=== PATIENT | female | born 1995 | race African-American/Black ===

== ENCOUNTER 2025-01-10 09:43 | Observation (INO) | payer MEDICAID, SELFPAY ==
--- NOTE | 2025-01-10 10:00 | PC.NURSE ---
Patient arrives via ambulance holding young daughter. Patient states she had cramping last PM rates at 4-5 and cramping has increased today. States cramping increasded to 8-9 spo she went to urgent care. States she also had a white discharge which thick. No leaking of fluid. No bleeeding and has good movment. Pt asks if cramping could be related to walking alot of steps. Pt recently moved to [facility]. Last visit was at [facility] in August. Did have lab drawn. Pt has #18 Jel[employer] in right AC. Appears comfortable. States cramping is 5-6 currently.
--- OUTSIDE RECORDS SUMMARY | 2025-01-10 10:02 | XMS_ITS | Encounter Summary ---
Author Organization [facility] Address [address] [place] [address] Care Team Providers Care Project Controller Name Role Phone Unavailable Primary Care Provider Unavailabl e Reason for Visit * Reason Onset Date Comments MEDICATION REFILL 12/30/2022 Encounter Details Date Type Department Care Team (Late st Contact Info) Description 12/30/2022 Refill [facility]/ EVALUATION UNIT [address] [place] [address] Rebekah Willson MD [address] [place] [address] MEDICATION REFILL Social History Tobacco Use Types Packs/Day Years Used Date Smoking Tobacco: Every Day Cigarettes 0.3 1 Started: 06/18/2019; Last attempted to quit: 06/18/2020 Smokeless Tobacco: Never Alcohol Use Standard Drinks/Week Comments Not Currently 0 (1 standard drink = 0.6 oz pur e alcohol) AUDIT-C Answer Date Recorded Q1: How often do you have a drink containing alc ohol? Never 06/11/2020 Average Number of Drinks Not on file 020 Frequency of Binge Drinking Not on file 05/14 Overall Financial Resource Strain (CARDIA) Answe r Date Recorded How hard is it for you to pa y for the very basics like food, housing, medical care, and heating? Not hard at all 10/04/2022 [facility] [place] [facility] - Occupational Stress Questionnaire Answer Date Recorded Do you feel stress - tense, restless, nervous, or anxious, or unable to sleep at night because your mind is troubled all the time - these days? Not at all 10/04/2022 Hunger Vital Sign Answer Date Recorded Within the past 12 months, y ou worried that your food would run out before you got the money to buy more. Never true 10/05/19 23 Within the past 12 months, t he food you bought just didn't last and you didn't have money to get more. Never true 10/04/2022 PRAPARE - Transportation Answer Date Re corded In the past 12 months, has l ack of transportation kept you from medical appointments or from getting medications? No 09/11 In the past 12 months, has l ack of transportation kept you from meetings, work, or from getting things needed for daily living? No 10/04/2022 Housing Stability Vital Sign Answer Henrik e Recorded In the last 12 months, was t here a time when you were not able to pay the mortgage or rent on time? No 10/04/2022 In the last 12 months, how many places have you lived? 1 10/04/2022 In the last 12 months, was t here a time when you did not have a steady place to sleep or slept in a mcc (including now)? No 10/04/2022 [place] Depression Scale Answer Date Recorded [place] Depression Scale Total 12 10/10/2022 The thought of harming myself has occurred to me . Never 10/10/2022 Comments No Sex and Gender Information Value Date Recorded Sex Assigned at Female 09/21/2022 8:29 PM CDT Legal Sex Female 5:41 AM [employer] Gender Identity Female 09/21/2022 8:29 PM CDT Sexual Orientation Not on file documented as of this encounter Functional Status * Is person deaf or have serious hearing difficulty? Answer Date of Assessment Author No 10/04/2022 5:56 AM CDT Sulma Carrillo RN * Is person blind or have serious difficulty seeing? Answer Date of Assessment Author No 10/04/2022 5:56 AM CDT Sulma Carrillo RN * Does person have serious difficulty walking/climbing stairs? Answer Date of Assessment Author No 10/04/2022 5:56 AM CDT Pratl, Ka tharine, RN * Does person have difficulty dressing/bathing? Answer Date of Assessment Author No 10/04/2022 5:56 AM Sulma Ross RN * Does person have difficulty doing errands alone? Answer Date of Assessment Author No 10/04/2022 5:56 AM Sulma Ross RN documented as of this encounter Mental Status * Does person have difficulty concentrating/remembering/making decisions? Answer Entry Date Author No 10/04/2022 5:56 AM Sulma Ross RN documented in this encounter Plan of Treatment Not on file documented as of this encounter Visit Diagnoses Not on filedocumented in this encounter Additional Health Concerns Infection Onset Date Last Indicated Resolved Time ESBL Hx Comment:Added from external infection. 05/14/2019 documented as of this encounter
--- OUTSIDE RECORDS SUMMARY | 2025-01-10 10:02 | XMS_ITS | Clinical Summary ---
Author Organization [facility] Address [address] [place] [address] Care Team Providers Care Plant Security Guard Name Role Phone Unavailable Primary Care Provider Unavailabl e Source Comments [facility],non-owned Affiliates and Associated Physician Practices is amultiple site organization consisting of ambulatory clinics and hospital sitesin [place], [place], [place] and [place]. This disclosure is being madepursuant to the Care Everywhere program and may not contain all information available regarding this patient. Last updated 18.[facility] Allergies No known active allergies Medications * Be aware that medications may not be up to date on this document. Alwaysverify current medications with the patient. lurasidone (Latuda) 20 MG tablet Take 1 (one) tablet by mouth daily with food 30 tablet 11 3 Active docusate sodium (Colace) 100 MG capsule Take 1 (one) capsule by mouth 2 times daily 60 capsule 11 3 Active acetaminophen (Tylenol) 325 MG tablet Take 2 (two) tablets by mouth every 6 hours as needed for Fever or Pain Maximum allowable Acetaminophen amount = 4 Grams (4000 mg) / 24 hours. 40 tablet 3 Active benzocaine (Maximum Strength Orajel) 20 % gel Take by mouth 4 times daily as needed for Pain 30 g 5 Active HYDROcodone-damien taminophen ([place]) 5-325 MG tabletIndicatio ns:Pain, dental Take 1 (one) tablet by mouth every 6 hours as needed for Pain 6 tablet 5 Active Vit-Fe Fumarate-FA ( Vitamins) 28-0.8 MG TABS Take 1 (one) tablet by mouth once daily 5 Active metoclopramide (Reglan) 10 MG tabletIndicatio ns:Encounter for supervision of other normal in first trimester ([facility]),11 weeks gestation of ([facility]) Take 1 (one) tablet by mouth 4 times daily - before meals & nightly 120 tablet 4 5 Active ondansetron, disintegrating, (Zofran ODT) 8 MG tabletIndicatio ns:Encounter for supervision of other normal in first trimester ([facility]),11 weeks gestation of ([facility]) Take 1 (one) tablet by mouth every 6 hours as needed for Nausea/Vomiting Allow tablet to dissolve on the tongue 30 tablet 5 Active Active Problems Patient Care Coordination No te Formatting of this note migh t be different from the original. [employer] form completed. Diapers given. 08/27/2020, 08/04/2022, 09/01/3022; 09/29/22 Problem Noted Date Diagnosed Date Trichomonas vaginalis (TV) infection 09/01/2024 Prediabetes in mother during 5 Sciatic pain, right 09/01/2022 Overview (09/08/2022): Describes pain shooting down right leg below knee. Counseled that most likely sciatic nerve pain. 09/08/22 Less bothersome at this week's visit. Varicose veins during 07/01/2022 Overview (07/01/2022): Reports on upper left leg. Advised pressure stockings. Bipolar 1 disorder 04/11/2022 Overview (04/11/2022): See notes under depression. Assessment & Plan (08/04/2022 2:05 PM ELECTRIC MOTOR ANALYST): Followed by Dr Novoa in mood clinic Prescribed Marti Has MOMs counseling info/contact Tobacco abuse 06/11/2020 Overview (10/02/2022): 04/08/22 Smoking one cigarette per day. Support offered and encouraged to quit completely. 06/30/22 1-2 cigarettes per week. Support offered! 09/29/22 Still smoking. Marijuana use 06/11/2020 Overview (10/02/2022): 04/08/22 Using twice a day. Counseled against during . Is having nausea and have prescribed Zofran. 06/30/22 Still using. Nausea managed with Zofran but uses it daily to even out. Counseled against. 09/29/22 Still using but not every day. Depression 06/11/2020 Overview (10/02/2022): 04/08/22 Here for NEW OB visit. Known to me from prior care. EPDS = 14. No SI/HI. Reports that she can still get sadness but is overall doing ok. Is interested in [facility] program and would like referral. On further question has symptoms consistent with phuc. Has gone as many as 3-4 days without any sleep. Would like trial med management and agrees to trial Latuda. 06/30/22 Was not able to get Latuda. Says that they would not give her generic even though records indicate generic prescribed. Resent through prescription and counseled re use. Patient does report having blow outs one to times per week. Does not hurt her children. Interested in counseling. Told about group therapy through MOM[facility] program and referral sent. No SI/HI. 08/04/22 Has not picked up Lutuda yet but plans to do today. Resent. Mood good. No SI/HI. 09/01/22 Need meds sent to [facility] pharmacy. Done today. No SI/HI. 09/08/22 Was able to get Latuda and is taking. Says mood is good. She is feeling calmer. No SI/HI. 09/15/22 Doing well emotionally. No SI/HI. Taking Latuda. 09/29/22 Continuing to do well on Latuda. No SI/HI. Estimated Date of Delivery Comme nts Yes 03/14/2025 Based on Ultraso und Resolved Problems Problem Noted Date Diagnosed Date Resolved Date Abdominal pain affecting 09/16/2022 09/10/2024 Overview (09/16/2022): Had infraumbilical pain on 09/14. Rates 03/21. Last 8 hours. Also felt hard. No vaginal bleeding and good movement. Counseled to come to [facility] if this type of pain recurs. Polyhydramnios, antepartum complication 09/15/2022 09/10/2024 Overview (10/02/2022): Noted on ultrasound 09/01, mild. Rec to follow up with repeat ultrasound one week from today. 09/29/22 Normal fluid. Uterine size date discrepanc y , third trimester 09/15/2022 09/10/2024 Overview (10/02/2022): 09/29/22 EFW 39% Cervical cancer screening 04/11/2022 Overview (08/05/2022): Normal pap May 2020 (NILM). UTI (urinary tract infection ) during 04/11/2022 09/10/2024 Overview (08/05/2022): Has been treated. Rechecking U Cx. Results neg. STI (sexually transmitted infection) 04/11/2022 09/10/2024 Overview (08/05/2022): Has been diagnosed and treated for Chlamydia and Trich. Trich neg 06/30/22 Rechecking GC/CHL today. Neg. Irritation of external female genitalia 04/11/2022 09/01/2022 Overview (04/11/2022): No erythema noted externally. No clue or trich seen on wet prep. No hyphae. Counseled re avoiding soap/shampoo with perfumes and deodorants. Encounter for supervision of low-risk in third trimester 04/08/2022 09/10/2024 Overview (10/02/2022): First visit at 13w6d. labs today including SMA/NIPT In Epic Hgb E normal CF neg GCneg B+/Ab neg/Rubella Immune Hgb/platelets 11.7/250 HIV/Hep B&C/Syph neg SMA neg NIPT low risk U Cx neg 08/04 GCT 76 Hgb/platelets 10.4/348 Iron Rx sent and to lemon picker at [facility] pharmacy on 09/01/22. HIV/Syph neg Tdap 09/15 GBS neg Assessment & Plan (08/04/2022 2:04 PM ELECTRIC MOTOR ANALYST): Third trimester labs today T-dap Anatomy incomplete, AGA 06/30. Complete anatomy and repeat growth today Late deceleration of heart rate 07/14/2020 04/08/2022 Decreased movements in third trimester 07/09/2020 Abnormal [place] glucose challenge test, antepartum 06/18/2020 04/08/2022 Overview (06/25/2020): GCT 147 GTT WNL 82/114/102/46 Trichomonosis 06/18/2020 04/08/2022 Overview (03/13/2023): Treated on 06/16, repeat testing collected too soon and returned positive, will repeat testing at follow up. March 2023 Regulatory Update Late care affecting in third trimester 06/11/2020 04/08/2022 Overview (06/11/2020): Patient presenting for first visit with me at 35 weeks. Seen in [facility] on 04/30/20 as transfer for possible labor. Labs done at that time: B+/Ab-/Rubella Immune HIV/Hep B/Syph neg Trich/GC/Chl neg Hgb/Plt 10.1/277 CF neg Hemoglobin E normal Pap and GCT today Flu/Tdap today Counseling re GBS at follow up Cervical cancer screening 06/11/2020 Overview (06/11/2020): No pap in our system and patient not aware of prior pap. Done today. UTI (urinary tract infection ) during , third trimester 06/11/2020 04/08/2022 Overview (06/11/2020): Treated when seen in [facility]. Repeat testing today. Housing situation unstable 06/11/2020 1 Overview (06/25/2020): She and her kids are living with a friend. Many other kids there. Patient in need of more stable housing situation. Will message SW. Per patient it is ok to leave message. She can be reached at [phone]. Currently at [facility] Homeless 01/23/2018 06/11/2020 Marijuana user 01/23/2018 06/11/2020 Supervision of normal 01/15/2018 04/30/2020 Abdominal pain affecting 12/06/2017 04/30/2020 Pelvic pain in Threatened labor Oligohydramnios 04/30/2020 examination follo wing vaginal delivery 04/30/2020 Breast abscess 06/11/2020 Obesity affecting in third trimester 04/08/2022 arrhythmia affecting p regnancy, antepartum 04/08/2022 Encounters Date Type Department Care Team Description 11/19/2024 Telephone [facility] - RETAIL PHARMACY TECHNICIAN [address] [place] [address] Danielle George APRN-LIEUTENANT SHIFT SUPERVISOR Appointment 10/31/2024 Telephone [facility] [id number] [place] [address] , [address] [place], [place] [id number] Shannan Marrufo Missed Appointment 10/14/2024 Travel from Last 3 Months Immunizations Immunization Administration Dates Next Due INFLUENZA VACCINE, QUADR. (F LUZONE; FLULAVAL; FLUARIX; AFLURIA QUADRIVALENT; 6MO+), 0.5 ML (IIV4) 06/11/2020 MMR 10/05/2022(Deferred: See Comments - pt is immune),07/16/2020() TDAP (7yrs+) 10/05/2022(), 023,07/16/2020(Defe rred: See Comments - Has had tdap),06/11/2020,01/25/2016 Family History Medical History Relation Name Comments Diabetes Father Diabetes Mother Twins Mother Relation Name Status Comments Brother 1 Father Alive Mother Alive Sister 3 Social History Tobacco Use Types Packs/Day Years Used Date Smoking Tobacco: Every Day Cigarettes 0.3 1 Started: 06/18/2019; Last attempted to quit: 06/18/2020 Smokeless Tobacco: Never Tobacco Cessation:Ready to Q uit: Not Asked; Counseling Given: Not Answered Alcohol Use Standard Drinks/Week Comments Not Currently 0 (1 standard drink = 0.6 oz pur e alcohol) AUDIT-C Answer Date Recorded Q1: How often do you have a drink containing alcohol? Never 08/06/2024 Q2: How many drinks containi ng alcohol do you have on a typical day when you are drinking? Patient does not drink Q3: How often do you have si x or more drinks on one occasion? Never 08/06/2024 Overall Financial Resource Strain (CARDIA) Answe r Date Recorded How hard is it for you to pa y for the very basics like food, housing, medical care, and heating? Not hard at all 10/04/2022 [facility] - Occupational Stress [...] place to sleep or slept in a detention (including now)? No 10/04/2022 [place] Depression Scale Answer Date Recorded [place] Depression Scale Total 12 10/10/2022 The thought of harming myself has occurred to me . Never 10/10/2022 Estimated Date of Delivery Comme nts Yes 03/14/2025 Based on Ultraso und Sex and Gender Information Value Date Recorded Sex Assigned at Female 09/21/2022 8:29 PM CDT Legal Sex Female 5:41 AM ELECTRIC MOTOR ANALYST Gender Identity Female 09/21/2022 8:29 PM CDT Sexual Orientation Not on file Last Filed Vital Signs Vital Sign Reading Time Taken Comments Blood Pressure 118/60 09/11/2024 2:20 PM CDT Pulse 88 09/11/2024 2:20 PM CDT Temperature 36.7 C (98.1 F) 08/15/2024 7:10 AM ELECTRIC MOTOR ANALYST Respiratory Rate 18 08/15/2024 7:10 AM ELECTRIC MOTOR ANALYST Oxygen Saturation 100% 08/15/2024 7:10 AM ELECTRIC MOTOR ANALYST Inhaled Oxygen Concentration - - Weight 92.5 kg (204 lb) 09/11/2024 2:20 PM CDT Height 162.6 cm (5' 4) 09/11/2024 2:20 PM CDT Body Mass Index 35.02 09/11/2024 2:20 PM CDT Plan of Treatment Health Maintenance Due Date Last Done Comments HEPATITIS B VACCINE (1 of 3 - 19+ 3-dose series) 2014 PNEUMOCOCCAL VACCINE (1 of 2 - PCV) 2014 HPV VACCINE (1 - 3-dose SCDM series) 2022 COVID-19 VACCINE ( - season) 2024 OB-ONE HOUR GLUCOSE 12/06/2024 08/04/2022, 06/22/2020, 06/11/2020 OB-TDAP CURRENT 12/13/20242022, 06/11/2020, 01/25/2016 OB-GROUP B STREP SCREEN 02/07/2025 09/16/19, 06/16/2020, 01/15/2018 INFLUENZA VACCINE (#1) 2025 06/11/2020 Respiratory Syncytial Virus (RSV) Vaccine Pt: or over 60 yrs (1 - Risk 1-dose series) 02/10/2025 PAP SMEAR 08/29/2027 08/28/2024, 06/11/2020 DTAP/TDAP/TD VACCINES (4 - Td or Tdap) 08/04/2032 08/04/2022, 06/11/2020, 01/25/2016 ZOSTER VACCINE (1 of 2) 2045 HEPATITIS C SCREENING Completed 08/28/2024, 022 HIV SCREENING Completed 08/28/2024, 07/14, 04/08/2022, Additional history exists HIB VACCINE Aged Out No longer eligi ble based on patient's age to complete this topic MENINGOCOCCAL (Group B) VACCINE SHARED DECISION-MAKING Aged Out No longer eligible based on patient's age to complete this topic MENINGOCOCCAL GROUPS A/C/Y/W VACCINE Aged Out No longer eligible based on patient's age to complete this topic Procedures Procedure Name Priority Date/Time Associated Diagnosis Comments HEPATITIS C ANTIBODY W RFLX PCR Routine 08/28/2024 2:41 PM CDT Encounter for supervision of other normal in first trimester PROFILE W T PALLIDUM W HIV Routine 08/28/2024 2:41 PM CDT Encounter for supervision of other normal in first trimester PAP IG LB CT+NG+TV RFLX HPV ASCU Routine 08/28/2024 2:32 PM CDT Encounter for supervision of other normal in first trimester CULTURE STREP B Routine 09/15/2022 1:10 PM CDT Encounter for supervision of low-risk in third trimester GLUCOSE CHALLENGE Routine 08/04/2022 2:5 9 PM ELECTRIC MOTOR ANALYST Encounter for supervision of low-risk in second trimester from Last 3 Months or Most Recently Relevant to Health Maintenance Results * HEPATITIS C ANTIBODY W RFLX PCR (08/28/2024 2:41 PM CDT) Hepatitis C Antibody Non Reactive Non Reactive [facility] INSURANCE BILL Comment: Performed at: - [facility] [id number] [place], [place] [id number] Police Specialist: Greyson Elizabeth PhD, Phone: [phone] Interpretation Comment [facility] INSURANCE BILL Comment: Not infected with HCV unless early or acute infection is suspected (which may be delayed in an immunocompromised individual), or other evidence exists to indicate HCV infection. Blood BLOOD SPECIMEN / Unknown 08/28/2024 2:41 PM CDT 08/28/2024 Narrative [facility] INSURANCE BILL - 08/29/2024 8:11 AM CDT [facility] at: - [facility] [address] [place], [place] [id number] Police Specialist: Greyson Elizabeth PhD, Phone: [phone] Dania Walls DO LAB - CHEMISTRY ORDERABLES Final Result [facility] INSURANCE BILL [address] [place] [address] * PROFILE W T PALLIDUM W HIV (08/28/2024 2:41 PM CDT) Hepatitis B Virus Surface Antigen Negative Negative [facility] INSURANCE BILL T pallidum Antibody (TP-PA) Non Reactive Non Reactive [facility] INSURANCE BILL Rubella Antibody 1.63 Immune >0.99 index [facility] INSURANCE BILL Comment: Non-immune <0.90 Equivocal 0.90 - 0.99 Immune >0.99 ABO B [facility] INSURANCE BILL Rh Type Positive [facility] INSURANCE BILL Comment: Please note: Prior records for this patient's ABO / Rh type are not available for additional verification. Antibody Screen Negative Negative [facility] INSURANCE BILL HIV Screen 4th Generation w Reflex Non Reactive Non Reactive [facility] INSURANCE BILL Comment: HIV-1/HIV-2 antibodies and HIV-1 p24 antigen were NOT detected. There is no laboratory evidence of HIV infection. HIV Negative WBC 5.6 3.4 - 10.8 x10E3/uL [facility] INSURANCE BILL RBC 4.52 3.77 - 5.28 x10E6/uL [facility] INSURANCE BILL Hemoglobin 12.7 11.1 - 15.9 g/dL [facility] INSURANCE BILL Hematocrit 38.7 34.0 - 46.6 % [facility] INSURANCE BILL MCV 86 79 - 97 fL [facility] INSURANCE BILL MCH 28.1 26.6 - 33.0 pg [facility] INSURANCE BILL MCHC 32.8 31.5 - 35.7 g/dL [facility] INSURANCE BILL RDW 13.2 11.7 - 15.4 % [facility] INSURANCE BILL Platelet Count 290 150 - 450 x10E3/uL [facility] INSURANCE BILL Granulocytes % 63 Not Estab. % [facility] INSURANCE BILL Lymphocytes % 28 Not Estab. % [facility] INSURANCE BILL Monocytes % 6 Not Estab. % [facility] INSURANCE BILL Eosinophils % 1 Not Estab. % [facility] INSURANCE BILL Basophils % 1 Not Estab. % [facility] INSURANCE BILL Granulocytes Absolute 3.6 1.4 - 7.0 x10E3/uL [facility] INSURANCE BILL Lymphocytes Absolute 1.5 0.7 - 3.1 x10E3/uL [facility] INSURANCE BILL Monocytes Absolute 0.4 0.1 - 0.9 x10E3/uL [facility] INSURANCE BILL Eosinophils Absolute 0.1 0.0 - 0.4 x10E3/uL [facility] INSURANCE BILL Basophils Absolute 0.0 0.0 - 0.2 x10E3/uL [facility] INSURANCE BILL Immature Granulocytes 1 Not Estab. % [facility] INSURANCE BILL Immature Granulocytes Absolute 0.0 0.0 - 0.1 x10E3/uL [facility] INSURANCE BILL Blood BLOOD SPECIMEN / Unknown 08/28/2024 2:41 PM CDT 08/28/2024 Narrative [facility] INSURANCE BILL - 08/30/2024 9:08 PM CDT Performed at: 01 - [facility] [address] [place], [place] [id number] Police Specialist: Greyson Elizabeth PhD, Phone: [phone] Performed at: - [address] [id number] Police Specialist: Spencer Cardenas MD, Phone: [phone] us Dania Walls DO LAB - SEROLOGY ORDERABLES Final Result [facility] INSURANCE BILL [address] [place] [address] * (ABNORMAL) PAP IG LB CT+NG+TV RFLX HPV ASCU (08/28/2024 2:32 PM CDT) Diagnosis Comment [facility] INSURANCE BILL Comment:NEGATIVE FOR INTRAEP ITHELIAL LESION OR MALIGNANCY. Specimen Adequacy Comment [facility] INSURANCE BILL Comment: Satisfactory for evaluation. Endocervical and/or squamous metaplastic cells (endocervical component) are present. Clinician Provided ICD10 Comment [facility] INSURANCE BILL Comment:Z34.81 Performed by Comment [facility] Comment:Danny Rojas ytotechnologist (ASCP) Comment . [facility] INSURANCE BILL Note Comment [facility] INSURANCE BILL Comment: The Pap smear is a screening test designed to aid in the detection of premalignant and malignant conditions of the uterine cervix. It is not a diagnostic procedure and should not be used as the sole means of detecting cervical cancer. Both false-positive and false-negative reports do occur. [facility] CPT Code Automation Comment [facility] INSURANCE BILL Comment: This liquid based ThinPrep(R) pap test was screened with the use of an image guided system. Note Comment [facility] INSURANCE BILL Comment: The HPV DNA reflex criteria were not met with this specimen result therefore, no HPV testing was performed. Chlamydia trachomatis ARTI Negative Negative [facility] INSURANCE BILL GC ARTI Negative Negative [facility] Trichomonas vaginalis by ARTI Positive(A) Negative [facility] PART OF UTERINE CERVIX / Unknown 08/28/2024 2:32 PM CDT 08/28/2024 Comment:Cervix Release to pa t Narrative [facility] - 08/31/2024 9:10 AM CDT Performed at: 01 - [facility] [id number] Police Specialist: Eden Mancini MD, Phone: [phone] Performed at: 02 - [facility] [id number] Police Specialist: Eden Mancini MD, Phone: [phone] Specimen Comment: [id number] Specimen Comment: No. of containers..01 ThinPrep Vial Dania Walls DO LAB - PATHOLOGY/CYTOLOGY ORDERAB LES Final Result [facility] INSURANCE BILL [address] [place] [address] * CULTURE STREP B (09/15/2022 1:10 PM CDT) Culture Strep B Negative for beta-hemolytic Streptococcus Group B GUCCI 09/18/2022 11:47 AM CDT [facility] MICROBIOLOGY Microbiology MISCELLANEOUS SAMPLES / Unknown Collection / Unknown 09/15/2022 1:10 PM CDT 09/15/2022 1:21 PM CDT us Rebekah Willson MD LAB - MICROBIOLOGY ORDERA BLES Final Result [facility] MICROBIOLOG[facility] [address] [place] [address] [phone] * GLUCOSE CHALLENGE (08/04/2022 2:59 PM ELECTRIC MOTOR ANALYST) Glucose Challenge 76 64 - 140 mg/dL 08/04/2022 3:30 PM ELECTRIC MOTOR ANALYST [facility] Glucose Challenge Time 08/04/2022 3:30 PM ELECTRIC MOTOR ANALYST [facility] Blood BLOOD SPECIMEN / Unknown Venipuncture / Unknown 08/04/2022 2:59 PM ELECTRIC MOTOR ANALYST 08/04/2022 3:09 PM ELECTRIC MOTOR ANALYST Rebekah Willson MD LAB - CHEMISTRY ORDERABLE S Final Result Performing Organization Address City/[facility]/ZIP Co de Phone Number [facility] [address] [place] [address] from Last 3 Months or Most Recently Relevant to Health Maintenance Additional Health Concerns Infection Onset Date Last Indicated ESBL Hx Comment:Added from external infection. 05/14/2019 Insurance MEDICAID LIMITED BENEFIT - [place] Advance Directives * Full Code (Latest Code Status on File) Date Activated Date Inactivated Comments 10/04/2022 6:02 AM 10/06/2022 3:33 PM * Full Code Date Activated Date Inactivated Comments 07/14/2020 10:53 PM 07/17/2020 5:52 PM * Full Code Date Activated Date Inactivated Comments 06/16/2020 1:14 PM 06/16/2020 5:16 PM * Full Code Date Activated Date Inactivated Comments 03/10/2020 4:43 PM 03/10/2020 8:50 PM * Full Code Date Activated Date Inactivated Comments 12/06/2017 5:40 PM 12/06/2017 9:04 PM
[2025-01-10 10:15] VITALS: BP 120/64; PULSE 85; TEMP 36.2
--- NOTE | 2025-01-10 10:30 | PC.NURSE ---
Contacted Ag, Release of information signed. Lab work and reqeusted. Awaiting those. Pt resting and offers no complaints at this time. Advised pt we will call physician admission nurse when we received from Flo.
[2025-01-10 10:36] VITALS: BMI 35.2
--- NOTE | 2025-01-10 11:00 | PC.NURSE ---
1130 Patient states cramping has improved since resting.
--- NOTE | 2025-01-10 11:40 | PC.NURSE ---
Dr. Silverio sole conditioner. Contacted and reported patient admission and symtpoms of cramping since last PM worse this AM, white discharge, no bleeding or leaking of fluid, No contractions on arrival, two contractions past 30 minutes are only two since arrival. NO ROM plus or SVE ordered. Will discharge home to follow up in office.
--- NOTE | 2025-01-10 12:00 | PC.NURSE ---
Addendum entered by Manuel Vasquez RN 01/10/25 15:37: NOte should be times at 1300. Original Note: Advised patient she will be discharged home. PT comfortable at this time. Pt will order lunch and ear while waiting for ride. Discussed importance of follow up with her MD at [facility], Dr. Silverio or choosing a provider if planning to deliver at [facility]. labor and reasons to return also discussed. Pt was given Find Help for assistance with transportation to appointments.
--- NOTE | 2025-01-10 12:00 | PC.NURSE ---
Patient and mike clark had lunch. Her ride is here now and she is ready for discharge. IV Saline lock discontinued from Left AC. Discharge instructions reviewed.
--- NOTE | 2025-01-18 06:44 | PM.OBTRLD ---
OB - Triage/Final Diagnosis Visit Information Reason for evaluation: threatened labor Comments/Additional reasons for admission: I have assessed the risk for this patient, Aaron [address], and determined that she would benefit from observation care.
== END 2025-01-10 13:00 | disposition home or self-care (01) ==
PROVIDERS: Admitting Provider Obstetrics & Gynecology Gynecology; Visit Provider Obstetrics & Gynecology Gynecology
DX: O47.03 False labor before 37 completed weeks of gestation, third trimester (principal); Z3A.31 31 weeks gestation of pregnancy
CPT/HCPCS: G0378; G0379